=== PATIENT | female | born 1960 | race Caucasian/White ===

== ENCOUNTER 2017-01-12 13:48 | Emergency (ER) | payer SELFPAY ==
[2017-01-12 13:57] VITALS: BP 164/86; PULSE 98; RESP 20; TEMP 98.5; O2SAT 97
[2017-01-12] MEDS ORDERED: METF500T PO (13:59)
[2017-01-12] MEDS ORDERED: LISI2.5T3 PO (13:59)
--- NOTE | 2017-01-12 14:23 | PD ---
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 She has had a vaginal discharge for several days. She had trichomonas several years ago and thinks she has it again. She does not think she is but she does have regular periods PFSH Past Medical History Diabetes: Yes Patient Takes Glucophage: Yes Hypertension: Yes ?: Not LMP: 12/21/16 Past Surgical History Section: Yes Tonsillectomy: Yes Social History Alcohol Use: Yes Tobacco Use: Yes Substance Use: No Allergies-Medications (Allergen,Severity, Reaction): Coded Allergies: Penicillins (Verified Allergy, Unknown, 01/12/17) Reported Meds & Prescriptions Reported Meds & Active Scripts Active Reported Metformin (Metformin HCl) 500 Mg Tab 500 Mg PO DAILY With a meal Lisinopril 2.5 Mg Tab Unknown Dose PO DAILY Review of Systems General / Constitutional: No: Fever, Chills Eyes: No: Diploplia HENT: No: Headaches, Vertigo Cardiovascular: No: Chest Pain or Discomfort, Palpitations Respiratory: No: Cough, Shortness of Breath Gastrointestinal: No: Nausea Genitourinary: Positive: Discharge Musculoskeletal: No: Myalgias Skin: No Rash Neurologic: No: Weakness Physical Exam Narrative GENERAL: Well-developed female SKIN: Focused skin assessment warm/dry. HEAD: Atraumatic. Normocephalic. EYES: Pupils equal and round. No scleral icterus. No injection or drainage. ENT: No nasal bleeding or discharge. Mucous membranes pink and moist. NECK: Trachea midline. No JVD. GASTROINTESTINAL: Abdomen soft, non-tender, nondistended. Hepatic and splenic margins not palpable. Pelvic: There is heavy yellow discharge. Os is closed. Uterus not palpably enlarged. No masses are felt MUSCULOSKELETAL: No obvious deformities. No clubbing. No cyanosis. No edema. NEUROLOGICAL: Awake and alert. No obvious cranial nerve deficits. Motor grossly within normal limits. Normal speech. PSYCHIATRIC: Appropriate mood and affect; insight and judgment normal. Data Data Last Documented VS Vital Signs Date Time Temp Pulse Resp B/P (MAP) Pulse Ox O2 Delivery O2 Flow Rate FiO2 01/12/17 13:57 98.5 98 20 164/86 (112) 97 Orders Orders Gc And Chlamydia Pcr (01/12/17 14:16) Wet Prep Profile (01/12/17 14:16) Ua Includes Microscopic (01/12/17 14:16) Ed Urine Pregnancytest Poc (01/12/17 14:16) Labs Laboratory Tests Test 01/12/17 14:42 01/12/17 14:45 Urine Collection Type CLEAN CATCH Urine Color YELLOW Urine Turbidity SLIGHT Urine pH 5.5 Urine Specific Lyle 1.022 Urine Protein NEG mg/dL Urine Glucose (UA) NEG mg/dL Urine Ketones NEG mg/dL Urine Occult Blood NEG Urine Nitrite NEG Urine Bilirubin NEG Urine Leukocyte Esterase LARGE Urine WBC 100-200 /hpf Urine WBC Clumps MOD Urine Squamous Epithelial Cells > 8 /hpf Urine Bacteria FEW /hpf Urine Trichomonas FEW Urine Collection Time 14:42 Clue Cells (Wet Prep) NONE SEEN Vaginal Trichomonas (Wet Prep) NONE SEEN Vaginal Yeast (Wet Prep) NONE SEEN MDM Medical Decision Making Medical Screen Exam Complete: Yes Emergency Medical Condition: Yes Medical Record Reviewed: Yes Differential Diagnosis Differential includes yeast infection, Trichomonas, bacterial vaginosis Narrative Course Wet prep as come back negative. Her urine does show infection with 100-200 white cells. She'll be placed on Bactrim. I am also going to write a prescription for Flagyl for possible vaginosis Diagnosis Primary Impression: UTI (urinary tract infection) Qualified Codes: N30.00 - Acute cystitis without hematuria Additional Impression: Vaginitis Qualified Codes: N76.0 - Acute vaginitis Scripts Metronidazole (Flagyl) 500 Mg Tab 500 MG PO TID for Infection for 7 Days, TAB 0 Refills Prov: Tye Bradshaw MD 01/12/17 Sulfamethoxazole-Trimethoprim (Bactrim DS) 800-160 Mg Tab 1 TAB PO BID for Infection, #14 TAB 0 Refills Prov: Tye Bradshaw MD 01/12/17 Disposition: 01 DISCHARGE HOME Condition: Stable Tye Bradshaw MD Jan 12, 2017 14:23
[2017-01-12 14:53] LABS: BILIRUBIN, URINE NEG (NEG); BLOOD, URINE NEG (NEG); GLUCOSE,URINE NEG (NEG); KETONE, URINE NEG (NEG); NITRITE,URINE NEG (NEG); PH, URINE 5.5 (5.0-8.5); URINE LEUKOCYTE ESTERASE LARGE (NEG)
[2017-01-12 15:02] LABS: URINE COLOR YELLOW (YELLW/STRAW)
[2017-01-12 15:03] LABS: WBC, URINE 100-200 /hpf (0-5); WHITE BLOOD CELL CLUMPS MOD
[2017-01-12 15:04] LABS: SQUAMOUS EPITHELIAL CELL URINE > 8 /hpf (0-5)
[2017-01-12 15:07] LABS: BACTERIA, URINE FEW /hpf; TRICHOMONAS, URINE FEW
[2017-01-12] MEDS ORDERED: BACT800T5 PO (15:10)
[2017-01-12] MEDS ORDERED: METR-1 PO (15:10)
== END 2017-01-12 15:33 | disposition home or self-care (01) ==
LOC: PHED 13:48
DX: N30.00 Acute cystitis without hematuria (principal); N76.0 Acute vaginitis; B96.89 Other specified bacterial agents as the cause of diseases classified elsewhere
CPT/HCPCS: 81001; 84703; 87210; 87491; 87591; 99284